=== PATIENT | male | born 1955 | race Caucasian/White ===

== ENCOUNTER 2017-10-27 07:00 | Outpatient (RCR) | payer OTHER, SELFPAY ==
--- NOTE | 2017-10-06 11:17 | HP.PTEVAL_ITS ---
Patient's Visit Information RICKIE GOOD is a 61 year old M referred to Physical Therapy by Rickie WOOD with a diagnosis of Plantar Fascitits. Date of Evaluation: 10/06/17 Physical Therapist: Patience Grant - Visit Plan Frequency: 2x /Week Duration: 4 Weeks Plan: Stretching and modality of US with manual therapy. - Subjective Subjective: Left foot is worse than the right- months- This is not the first time- but he can't get rid of it this time. Has had over the counter insoles- is currently wearing the store bought onese. They make it better- just not all the way gone. When he gets up in the AM and whe he gets home from working and sits for awhile. Does not wear night splints. Was recommended but does not have them. Once he is moving the pain gets better. Pain is in the heel on the bottom of the foot. No radiating pain. Worst: 6/10 Best: 0/10. Describes the pain as sharp. When he puts his shoes on 30 min later he is happy. No N/T in the toes. 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 Not sore with the shoes on. Has been wearing shoes in the house. Was almost gone but went to the beach in August- he was in flip flops. Has had foot surgery on the left- toes rubbing. Pretty active. PMHx: carpal tunnel, RTC 10 years ago left side. Meds: none. - Objective Posture: FH, RS. Gait: no deviation noted. SLS: increased pronation bilateral. HR/TR: able. ROM: DF: 5 degrees, PF: 30 degrees, Inv/Ever: WFL. Strength: 5/5. Flex: HS: moderate, Gastroc: severe, Soleus: moderate - Goals Goal 1:: Patient will be I with HEP and progression Goal Time Frame: 4-6 Weeks Goal 2:: Patient will SLS for 30 sec without LOB or increased pronation Goal Time Frame: 4-6 Weeks Goal 3:: Patient will demo 10 degrees of ROM in DF to ease ADL's and demo increased gastroc flexibility. Goal Time Frame: 4-6 Weeks - Rehabilitation Potential Physical Therapy Diagnosis: Patient presents with hypomobility- he has decreased ROM and flexibility leading to increased pain Rehabilitation Potential: Fair - Anticipated Interventions Patient/Client Instruction: Educate patient on: Benefits of Fitness Program For the Purpose of:: To increase tolerance to activity/condition/position Therapeutic Exercise to Include: Strength training, Endurance training, Balance training, Agility training, Body mechanics, Flexibilty training, Passive ROM, Active ROM For the Purpose of:: To improve muscle performance and motor function Manual Therapy Techniques to Include: Mobilization, Soft tissue mobilization For the Purpose of:: To improve nutrient delivery to tissue Cryotherapy (ice pack, ice massage): Yes Thermo therapy (hot pack): Yes Ultrasound (thermal/non thermal): Yes For the Purpose of:: To decrease pain Thank you for the opportunity to evaluate your patient. For Medicare and Medicare HMO plans, please review the plan of care and approve it. It will need to be FAXED BACK to us at [phone] for Medicare purposes. Please let me know if there are questions or concerns regarding this plan of care. Physician Signature: Date:
--- NOTE | 2017-10-27 07:23 | HP.PTDCSUM_ITS ---
HP - PT D/C Summary It has been my pleasure to treat RICKIE GOOD under orders from Rickie Jason, for the diagnosis of Plantar Fascitits for a total of 6 visit (s). Discharge Date: Please see the following information for a summary of their discharge status. - Subjective Subjective: Still has the little bit of pain at the end of the day. Was in boots but not his work boots and did have orthotics in them. Feels the spot in the back is getting better. Does have some pain the AM but its better. Left is the only one that bothers him. - Overall Improvement % Improvement: 80 - Objective Objective/Function: Posture: good throughout. Gait: no deviation noted. Palpation: not tender. Strength: 5/5 throughout. ROM: DF: 5 degrees, PF: 60 degrees, Ever: 30 degrees, Inv: 40 degrees. Flex: HS: mod, Gastroc: mod, Solues : mod - Goals Goal 1:: Patient will be I with HEP and progression Goal Progress: Goal Met Goal 2:: Patient will SLS for 30 sec without LOB or increased pronation Goal Progress: Goal Met Goal 3:: Patient will demo 10 degrees of ROM in DF to ease ADL's and demo increased gastroc flexibility. Goal Progress: Progressing - Plan Plan: Discharge to HEP - D/C Information If there are questions or concerns regarding this patient's physical therapy, please feel free to call me at [phone]. Thank you for the referral of this patient. Sincerely, Patience Grant
== END 2017-10-27 19:00 | disposition home or self-care (01) ==
LOC: PT 07:00
PROVIDERS: Family Provider Family Medicine; PCP Family Medicine; Visit Provider Podiatrist
DX: M72.2 Plantar fascial fibromatosis (principal)
CPT/HCPCS: 97035; 97110; 97140; 97161; 97530

== ENCOUNTER → 2018-02-18 11:26 | Outpatient (CLI) | payer OTHER, SELFPAY ==
[2018-02-18 14:10] LABS: Hematocrit 39.4 % (40-54); Hemoglobin 12.9 g/dl (13.0-16.5); Mean Corp Hgb Conc 32.7 g/gl (32-36); Mean Corpuscular Hgb 30.3 pg (27.0-32.0); Mean Corpuscular Volume 92.5 fL (80-94); Platelet Count 239 K/mm3 (150-450); RBC Distribution Width SD 47.1 fl (35.1-43.9); Red Blood Count 4.26 M/mm3 (4.6-6.2); Scan Indicated on CBC? Y/N NO; White Blood Count 5.8 K/mm3 (4.4-11.0)
[2018-02-18 14:31] LABS: ALB/GLOB Ratio 1.2 RATIO (0.9-2.4); AST(SGOT) 20 U/L (15-37); Alanine Aminotransfer ALT/SGPT 31 U/L (16-61); Albumin, Serum 3.8 g/dL (3.2-5.0); Alkaline Phosphatase 53 U/L (45-117); Anion Gap 7 (5-15); BUN 23 mg/dL (7-18); BUN/Creat Ratio 22.5 RATIO (10-20); Chloride 105 mmol/L (98-107); Cholesterol 185 mg/dL (200); Creatinine, Serum 1.02 mg/dL (0.70-1.30); EST Glomerular Filtration Rate 78 mL/min (>60); Est Glom Filt Rate - Afr Amer 95 mL/min (>60); Globulin 3.3 g/dL (2.2-4.2); Glucose 82 mg/dL (74-106); High Density Lipoprotein 45 mg/dL; PSA,Total - Annual Screen 2.35 ng/mL (0.00-4.00); Potassium 4.6 mmol/L (3.5-5.1); Protein, Total 7.1 g/dL (6.4-8.2); Sodium Level 140 mmol/L (136-145); Thyroid Stim Hormone (TSH) 0.77 uIU/mL (0.358-3.74); Triglycerides 124 mg/dL; Very Low Density Lipoprotein 25 mg/dL (5-40)
== END ==
PROVIDERS: Family Provider Family Medicine; PCP Family Medicine; Visit Provider Family Medicine
DX: I10 Essential (primary) hypertension (principal); R97.20 Elevated prostate specific antigen [PSA]; Z12.5 Encounter for screening for malignant neoplasm of prostate
CPT/HCPCS: 36415; 80053; 80061; 84153; 84443; 85027; G0103

== ENCOUNTER → 2019-05-26 | Outpatient (CLI) | payer MEDICARE, SELFPAY ==
[2019-05-26 12:56] LABS: ALB/GLOB Ratio 1.1 RATIO (0.9-2.4); AST(SGOT) 17 U/L (15-37); Alanine Aminotransfer ALT/SGPT 26 U/L (16-61); Albumin, Serum 3.7 g/dL (3.2-5.0); Alkaline Phosphatase 56 U/L (45-117); Anion Gap 5 (5-15); BUN 23 mg/dL (7-18); BUN/Creat Ratio 21.9 RATIO (10-20); Calcium,Total 8.6 mg/dL (8.5-10.1); Chloride 108 mmol/L (98-107); Cholesterol 223 mg/dL (200); Creatinine, Serum 1.05 mg/dL (0.70-1.30); EST Glomerular Filtration Rate 75 mL/min (>60); Est Glom Filt Rate - Afr Amer 91 mL/min (>60); Globulin 3.3 g/dL (2.2-4.2); Glucose 87 mg/dL (74-106); High Density Lipoprotein 51 mg/dL; PSA,Total - Annual Screen 1.91 ng/mL (0.00-4.00); Potassium 4.6 mmol/L (3.5-5.1); Sodium Level 140 mmol/L (136-145); Triglycerides 104 mg/dL; Very Low Density Lipoprotein 21 mg/dL (5-40)
== END | disposition home or self-care (01) ==
PROVIDERS: Family Provider Family Medicine; PCP Family Medicine; Referring Provider Family Medicine; Visit Provider Family Medicine
DX: Z00.00 Encounter for general adult medical examination without abnormal findings (principal); R97.20 Elevated prostate specific antigen [PSA]; Z12.5 Encounter for screening for malignant neoplasm of prostate
CPT/HCPCS: 36415; 80053; 80061; 84153; G0103

== ENCOUNTER 2019-06-11 05:50 | Day surgery (SDC) | payer MEDICARE, SELFPAY ==
[2019-06-11] VITALS (23 sets, daily range): BP systolic 69–134; BP diastolic 39–92; PULSE 38–60; RESP 16; TEMP 36.1–36.8; O2SAT 93–100; BMI 26.8
[2019-06-11] MEDS: Lactated Ringers 1,000 ML 100 ML IV (06:22)
--- NOTE | 2019-06-11 06:31 | HP.PCM_ITS ---
Problem List (1) Screening for intestinal cancer Status: Acute History of Present Illness Date of Admission: 06/11/19 The patient is a 63 year old M who presents for screening colonoscopy today. Claims 10 years ago he had its previous one. Only upon contact by my office financial representative was he instructed that at that point he had a polyp. He does not recall those instructions. He has no current complaints. No abdominal pain. No bright red blood per rectum or melena. He otherwise enjoys good health. He does take medication for hypertension. Past Medical History Allergies No Known Allergies Allergy (Verified 06/08/19 09:15) Home Medications: Ambulatory Orders Medication Instructions Recorded Gluc Toney/Chondro Toney A/Vit C/Mn 1 ea PO DAILY 06/08/19 [Glucosamine Chondroitin Tab] Lisinopril [Zestril] 20 mg PO DAILY 06/08/19 Pyridoxine HCl (Vitamin B6) 250 mg PO DAILY 06/08/19 [Vitamin B-6] Smoking Status: Former smoker Tobacco Use: Non-smoker Review of Systems Constitutional: Denies: Anorexia HEENT: Denies: Difficulty Swallowing Cardiovascular: Denies: Chest Pain Gastrointestinal: Denies: Abdominal Pain, Melena Endocrine: Denies: Change in Body Habitus VTE Information - Inpt Only VTE Present on Admission: No Patient Problems: Active and Suspected Problems Screening for intestinal cancer (Acute) - Physical Exam General: Alert, Oriented x3, Cooperative, No apparent distress HEENT: Atraumatic Oral: Moist Mucosa Neck: Supple Lungs: Clear to auscultation, Normal air movement Cardiovascular: Regular rate, Regular Rhythm Abdomen: Bowel Sounds Present, Soft, Non Tender Extremities: No Calf Tenderness Neurological: - - Normal cognition Psych/Mental Status: Normal Affect Vital Signs Temp Pulse Resp BP Pulse Ox 98.0 F 58 L 16 121/62 H 100 06/11/19 06:17 06/11/19 06:17 06/11/19 06:17 06/11/19 06:17 06/11/19 06:17 Oxygen Delivery Method Room Air Weight: 197 lb 8.547 oz Body Mass Index (BMI) 26.8 Assessment/Plan All Active Problems Screening for intestinal cancer (Acute) I recommended the patient is screening colonoscopy with possible biopsy or polypectomy is indicated. He is aware of the technique, benefits, risks, alternatives. He has had an opportunity to ask and have questions answered. He presents via our open access program today. We will proceed as noted. Daniel Norris M.D., F.A.C.S.
--- NOTE | 2019-06-11 07:00 | COLBX_PTH ---
PATIENT: RICKIE GOOD LOC: [facility] U#:[id number] AGE/SX: 63/M ROOM: RE06/11/[address]: Dr. Daniel Norris MD : 1955 BED: DIS: 06/11/2019 SPEC #: [id number] RECD: 06/11/19 09:08 STATUS: TAN LUZ #: [id number] TRISTON: 06/11/19 07:[address]: Daniel Norris DEPT: SURGICAL PATHOLOGY RECD BY: Santos Russell ENTERED: 06/11/19 10:28 SP TYPE: COLON BX OTHR DR: Dr. Ector De La Vega MD Tissues: Sigmoid colon biopsy Procedures: Surgery Specimen Level IV HEADER OPERATION: Colonoscopy - open access (MOD) PRE-OP DIAGNOSIS: Screening TISSUE SUBMITTED: Proximal sigmoid polyp biopsy MICROSCOPIC DIAGNOSIS Proximal sigmoid polyp, biopsy: Fragments of colonic mucosa with focal minimal hyperplastic changes. SJ:samaria 10/14/19 MICROSCOPIC DESCRIPTION Slides are reviewed. GROSS DESCRIPTION Received in fixative is one container labeled with the patient's name and designated proximal sigmoid colon polyp. The specimen consists of multiple irregular fragments of light fernch soft tissue that in aggregate measure 1 x 0.3 x 0.1 cm. The specimen is totally submitted in one cassette. / AM:samaria 06/11/19 TC:5 CPT: 49943
--- NOTE | 2019-06-11 07:40 | OP.ENDO_ITS ---
06/11/2019 Anastacio De La Vega [address] [place] [address] Re : Colonoscopy procedure for Dannie Jama Dear Dr. De La Vega This procedure was performed on Tuesday, June 11, 2019. My impressions and recommendations are as follows: Impressions : - Enlarged prostate found on digital rectal exam. - Two 5 mm polyps in the proximal sigmoid colon, removed with a cold biopsy forceps. Resected and retrieved. - Diverticulosis in the sigmoid colon and in the descending colon. - The examination was otherwise normal. Recommendations : - Discharge patient to home. - Resume previous diet. - Continue present medications. - Repeat colonoscopy in 5 years for surveillance based on pathology results. - Telephone my office for pathology results in 1 week. My findings are described in the full procedure note, which is enclosed. If I can be of further assistance, please feel free to contact me at Doctor phone number(s): Work: . Sincerely, Daniel Norris MD 06/11/2019 7:39:50 AM This report has been signed electronically.
--- NOTE | 2019-06-11 08:23 | EKG12_ITS ---
Test Reason : Blood Pressure : / mmHG Vent. Rate : 046 BPM Atrial Rate : 046 BPM P-R Int : 182 ms QRS Dur : 110 ms QT Int : 444 ms P-R-T Axes : 033 -32 022 degrees QTc Int : 388 ms Sinus bradycardia Left axis deviation Abnormal ECG When compared with ECG of 03-DEC-2013 06:30, No significant change was found Confirmed by ALBERT VILLA, DORIS ([id number]), newspaper editor CHRISTIANO PALUMBO ([id number]) on 06/16/2019 11:30:51 AM Referred By: Daniel Norris Confirmed By:DORIS PRICE MD
[2019-06-11] MEDS: Lactated Ringers 1,000 ML 999 ML IV ×2 (08:25→09:20)
--- NOTE | 2019-06-11 09:43 | PCM.PN.BLA ---
Progress Note 63-year-old gentleman. His IV removed and he was being discharged when he became syncopal ashen and bradycardic. He was immediately taken back to the recovery area. He was noted to be bradycardic down to heart rate of approximately 35. He was still responsive ashened hypotensive. He was placed in Trendelenburg position. An IV was reinserted. He was given 0.25 mg of atropine. He was given a liter bolus of saline. Twelve-lead EKG was obtained did not demonstrate acute abnormality. Troponins were ordered. Dr. Senthil Sutton anesthesiology assisted with patient evaluation. Final interpretation was suspected vasovagal episode. The patient was observed for an extensive period of time. Pending his further progress he had a will be discharged with a diagnosis of vasovagal or if laboratory is remarkable then a hospitalist consult will be obtained. Daniel Norris M.D., F.A.C.S.
== END 2019-06-11 11:08 | disposition home or self-care (01) ==
LOC: EN 05:54 → AC 05:54
PROVIDERS: Anesthesiology; Family Provider Family Medicine; PCP Family Medicine; Referring Provider Surgery; Visit Provider Surgery
PROC: 0DJD8ZZ Inspection of Lower Intestinal Tract, Via Natural or Artificial Opening Endoscopic (ICD-10-PCS; CPT 45378; principal; 2019-06-11 06:55)
DX: Z12.11 Encounter for screening for malignant neoplasm of colon (principal); K63.5 Polyp of colon; R55 Syncope and collapse; K57.30 Diverticulosis of large intestine without perforation or abscess without bleeding; N40.0 Benign prostatic hyperplasia without lower urinary tract symptoms; I10 Essential (primary) hypertension; Z79.899 Other long term (current) drug therapy; Z87.891 Personal history of nicotine dependence
CPT/HCPCS: 45380; 96360; 96361; 36415; 84484; 88305; 93005; 99152; 99153; J7120

== ENCOUNTER 2020-04-16 10:53 | Emergency (ER) | payer MEDICARE, SELFPAY ==
[2019-06-11 06:17] VITALS: BMI 26.8
[2020-04-16 10:54] VITALS: BP 145/77; PULSE 55; RESP 17; TEMP 36.5; O2SAT 98; BMI 28.0
--- NOTE | 2020-04-16 11:14 | EKG12_ITS ---
Test Reason : CP Blood Pressure : / mmHG Vent. Rate : 050 BPM Atrial Rate : 050 BPM P-R Int : 166 ms QRS Dur : 106 ms QT Int : 404 ms P-R-T Axes : 002 -31 014 degrees QTc Int : 368 ms Sinus bradycardia Left axis deviation Abnormal ECG Confirmed by MARYELLEN VILLA, ARY ([id number]), medical transcription editor JÚNIOR BEJARANO ([id number]) on 04/17/2020 2:43:29 PM Referred By: UG/CG Confirmed By:ARY BOJORQUEZ MD
--- NOTE | 2020-04-16 11:34 | ED.VIS.GEN ---
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 Lightheadedness is worse if he rises from a supine or standing position quickly. Context: Sudden Onset Timing: Intermittent - Pain lasted for 1 minute and was described as sharp with no associated symptoms the lightheadedness is intermittent. Quality: Sharp chest pain and orthostatic Location: symptoms left anterior chest Current Severity: - - Pain is resolved. Orthostatic symptoms/dizziness has resolved. Patient is supine. Maximum Severity: Moderate - Previously described Worsened by: Upright position Relieved by: Nothing Associated Symptoms: Nothing Narrative: Patient is a 64-year-old male who presents with orthostatic symptoms last 3 days. Denies black or maroon stool. Denies fever, chills night sweats. Eyes ocular, visual auditory symptoms. Nuys change in voice. He denies difficulty swallowing or breathing. He presently denies chest pain. He denies respiratory symptoms. He denies GI symptoms. He denied radiation of the discomfort. He denies black or maroon stool. He denies history of PE or DVT. 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 The pain lasted for 1 minute. His only risk factor for coronary disease is hypertension. He smokes. There is a debate how much. He states half pack per day says 2 packs/day. He states he smoked for 45 years. Prior similar symptoms: No Recent Illness/Hospitalization: No - Past Medical History (1) History of hypertension Status: Acute (2) Screening for intestinal cancer Status: Acute Past Medical History - Allergies and Home Meds Allergies/Adverse Reactions: Allergies No Known Allergies Allergy (Verified 04/16/20 10:53) Primary Care Physician: Anastacio De La Vega MD [Primary Care Provider] - Prior records reviewed: Yes Surgical History: no surgical history Lives: Spouse/ Significant Other Smoking Status: Former smoker Alcohol: Rare Drugs: None Review of Systems General: Denies: Chills, Fever, Malaise, Subjective, Sweats Eyes: Denies: Visual changes - bilaterally, Blurred Vision - bilaterally, Diplopia ENT: Denies: Bilateral ear pain, Rhinorrhea, Sore throat Cardiovascular: Reports: Chest pain. Denies: Palpitations Respiratory: Denies: Dyspnea, Sputum, Dyspnea on exertion, Orthopnea, Paroxysmal nocturnal dyspnea Gastrointestinal: Denies: Abdominal pain, Nausea, Vomiting, Diarrhea, Melena, Hematochezia Musculoskeletal: Denies: Myalgias, Arthralgias, Swelling, Extremity Pain Skin: Denies: Rash, Wounds Neurological: Reports: Weakness. Denies: Headache, Parasthesia Endocrine: Denies: Polyuria, Polydipsia Hematologic: Denies: Easy bruising Physical Exam Vital Signs/Narrative: Vital Signs Temp Pulse Resp BP Pulse Ox 04/16/20 10:54 97.7 F L 55 L 17 145/77 H 98 Inital Vital Signs reviewed: Yes General: Well nourished, Well developed, No Acute Distress Head: Normocephalic, Atraumatic Eyes: Perrl, EOMI ENT: Moist mucous membranes, No rhinorrhea Neck: Supple, Nontender Cardiovascular: Regular rate, Regular rhythm, No murmurs Respiratory: No distress, CTA bilaterally, Chest nontender Abdomen: Soft, Nontender, Nondistended, Normal bowel sounds Rectal: - - There is no asymmetry, swelling, discoloration, leg vein distention, palpable cords or tenderness along the distribution of the deep venous system. Patient does have hair on his toes. D.P. PT pulse are palpable. Back: Nontender, Normal Inspection Extremities: Nontender, No edema Skin: Normal color, No rash Neurological: Alert, Oriented x3, Cranial nerves II-XII grossly intact, Normal Strength, Normal Sensation Psychological: Normal affect, Normal Mood Diagnostic/Tx/Re-eval Laboratory Results 04/16/20 04/16/20 11:36 11:36 WBC 4.3 L RBC 4.18 L Hgb 12.9 L Hct 38.8 L MCV 92.8 MCH 30.9 MCHC 33.2 RDW Std Deviation 44.9 H RDW Coeff of Jorge 13.2 Plt Count 253 MPV 9.7 Immature Gran % (Auto) 0.500 Neut % (Auto) 59.2 Lymph % (Auto) 28.6 Sierra % (Auto) 9.8 Eos % (Auto) 1.4 Baso % (Auto) 0.5 Absolute Neuts (auto) 2.6 Absolute Lymphs (auto) 1.23 Nucleated RBC % 0 Sodium 141 Potassium 4.4 Chloride 108 H Carbon Dioxide 27.0 Anion Gap 6 BUN 20 H Creatinine 1.12 Estim Creat Clear Calc 71.21 Est GFR (MDRD) Af Amer 84 Est GFR (MDRD) Non-Af 70 BUN/Creatinine Ratio 17.9 Glucose 100 Calcium 8.7 The static vital signs were performed after IV fluid. Orthostatic vitals were normal. Patient's unable to reproduce the symptoms that prompted him to come to the emergency department. Therefore, will discharge to home with appropriate home-going instructions. - EKG Initial EKG Interpretation: Sinus Rhythm - Sinus rhythm with a ventricular rate of 50. NE interval 166 ms. QRS duration 106 ms. QT duration 4 and 4 ms with a QTC of 368 ms. Bellamy to left. The EKG is remarkable sinus bradycardia and left axis. There is no ischemic changes noted. - Medical Decision Making Patient's chest pain is atypical. This does not represent cardiac pain. Clinically patient is dehydrated. Will obtain blood work to assess renal function since he has his hypertension to rule out elevated creatinine/acute renal insufficiency. He also received 1 L of normal saline wide open. ED Disposition - Plan for ED Patient: Disposition: Home or Assisted Living Diagnosis: Left-sided chest pain, Lightheadedness, Mild dehydration Instructions: ED Dehydration Adult, ED Hypotension Orthostatic Referrals: Anastacio De La Vega MD [Primary Care Provider] - As Needed
[2020-04-16] MEDS: 0.9% Normal Saline 1,000 ML 1000 ML IV (11:39)
[2020-04-16 11:44] LABS: Absolute Lymphocyte Count 1.23 X10^3/uL (0.83-4.51); Absolute Neutrophil Count 2.6 X10^3/uL (2.0-7.7); Basophil# 0.02 X10^3/uL; Basophil% 0.5 % (0-1); Eosinophil# 0.06 X10^3/uL; Eosinophils% 1.4 % (0-5); Hematocrit 38.8 % (40-54); Hemoglobin 12.9 g/dL (13.0-16.5); Lymphocyte # 1.23 X10^3/ul (4.0); Lymphocyte % 28.6 % (19-41); Mean Corp Hgb Conc 33.2 g/dL (32-36); Mean Corpuscular Hgb 30.9 pg (27.0-32.0); Mean Corpuscular Volume 92.8 fL (80-94); Mean Platelet Vol. 9.7 fl (6.2-12.0); Monocyte# 0.42 X10^3/uL; Monocyte% 9.8 % (0-10); NRBC Flagged by Analyzer 0 % (0-5); Neutrophil # 2.55 X10^3/uL (2.7-7.7); Neutrophil % 59.2 % (47-70); Platelet Count 253 K/mm3 (150-450); RBC Distribution Width CV 13.2 % (11.6-14.6); RBC Distribution Width SD 44.9 fl (35.1-43.9); Red Blood Count 4.18 M/mm3 (4.6-6.2); White Blood Count 4.3 K/mm3 (4.4-11.0)
[2020-04-16 11:56] LABS: Anion Gap 6 (5-15); BUN 20 mg/dL (7-18); BUN/Creat Ratio 17.9 RATIO (10-20); Calcium,Total 8.7 mg/dL (8.5-10.1); Chloride 108 mmol/L (98-107); Creatinine, Serum 1.12 mg/dL (0.70-1.30); EST Glomerular Filtration Rate 70 mL/min (>60); Est Glom Filt Rate - Afr Amer 84 mL/min (>60); Estimated Creatinine Clearance 71.21 ml/min; Glucose 100 mg/dL (74-106); Potassium 4.4 mmol/L (3.5-5.1); Sodium Level 141 mmol/L (136-145)
[2020-04-16 12:13] VITALS: BP 125/72; BP 134/86; BP 138/83; PULSE 51; PULSE 64
[2020-04-16 12:31] VITALS: BP 132/75; PULSE 53; RESP 15; O2SAT 97
== END 2020-04-16 12:43 | disposition home or self-care (01) ==
PROVIDERS: Emergency Provider Emergency Medicine; PCP Family Medicine
DX: E86.0 Dehydration (principal); R07.89 Other chest pain; I10 Essential (primary) hypertension; F17.200 Nicotine dependence, unspecified, uncomplicated; Z79.899 Other long term (current) drug therapy
CPT/HCPCS: 80048; 85025; 93005; 96360; 99285; J7030; A4216

== ENCOUNTER → 2020-06-08 | Outpatient (CLI) | payer MEDICARE, SELFPAY ==
[2020-06-08 10:55] LABS: Anion Gap 5 (5-15); BUN 27 mg/dL (7-18); BUN/Creat Ratio 24.1 RATIO (10-20); Calcium,Total 8.6 mg/dL (8.5-10.1); Chloride 109 mmol/L (98-107); Cholesterol 215 mg/dL (200); Creatinine, Serum 1.12 mg/dL (0.70-1.30); EST Glomerular Filtration Rate 70 mL/min (>60); Est Glom Filt Rate - Afr Amer 84 mL/min (>60); Glucose 89 mg/dL (74-106); High Density Lipoprotein 47 mg/dL; PSA,Total - Annual Screen 3.06 ng/mL (0.00-4.00); Potassium 4.7 mmol/L (3.5-5.1); Sodium Level 141 mmol/L (136-145); Triglycerides 72 mg/dL; Very Low Density Lipoprotein 14 mg/dL (5-40)
== END | disposition home or self-care (01) ==
PROVIDERS: PCP Family Medicine; Referring Provider Family Medicine; Visit Provider Nurse Practitioner Family
DX: Z00.00 Encounter for general adult medical examination without abnormal findings (principal); Z12.5 Encounter for screening for malignant neoplasm of prostate
CPT/HCPCS: 36415; 80048; 80061; 84153; G0103

== ENCOUNTER → 2021-07-24 08:22 | Outpatient (CLI) | payer MEDICARE, SELFPAY ==
[2021-07-24 10:13] LABS: AST(SGOT) 19 U/L (15-37); Alanine Aminotransfer ALT/SGPT 32 U/L (16-61); Albumin, Serum 3.7 g/dL (3.2-5.0); Alkaline Phosphatase 61 U/L (45-117); Anion Gap 5 (5-15); BUN 23 mg/dL (7-18); BUN/Creat Ratio 21.3 RATIO (10-20); Calcium,Total 8.7 mg/dL (8.5-10.1); Chloride 106 mmol/L (98-107); Cholesterol 159 mg/dL (200); Creatinine, Serum 1.08 mg/dL (0.70-1.30); EST Glomerular Filtration Rate 72 mL/min (>60); Est Glom Filt Rate - Afr Amer 88 mL/min (>60); Globulin 3.7 g/dL (2.2-4.2); Glucose 88 mg/dL (74-106); High Density Lipoprotein 45 mg/dL; PSA,Total - Annual Screen 2.59 ng/mL (0.00-4.00); Potassium 4.2 mmol/L (3.5-5.1); Protein, Total 7.4 g/dL (6.4-8.2); Sodium Level 140 mmol/L (136-145); Triglycerides 102 mg/dL; Very Low Density Lipoprotein 20 mg/dL (5-40)
== END ==
LOC: MFPLAB 08:25
PROVIDERS: PCP Family Medicine; Referring Provider Family Medicine; Visit Provider Family Medicine
DX: E78.5 Hyperlipidemia, unspecified (principal); R97.20 Elevated prostate specific antigen [PSA]; Z12.5 Encounter for screening for malignant neoplasm of prostate
CPT/HCPCS: 36415; 80053; 80061; 84153; G0103

== ENCOUNTER → 2022-09-30 | Outpatient (CLI) | payer MEDICARE, SELFPAY ==
[2022-09-30 10:44] LABS: Anion Gap 7 (5-15); BUN 25 mg/dL (7-18); BUN/Creat Ratio 20.5 RATIO (10-20); Calcium,Total 9.1 mg/dL (8.5-10.1); Chloride 106 mmol/L (98-107); Cholesterol 165 mg/dL (200); Creatinine, Serum 1.22 mg/dL (0.70-1.30); EST Glomerular Filtration Rate 63 mL/min (>60); Est Glom Filt Rate - Afr Amer 76 mL/min (>60); Glucose 98 mg/dL (74-106); High Density Lipoprotein 47 mg/dL; PSA,Total - Annual Screen 3.08 ng/mL (0.00-4.00); Potassium 4.5 mmol/L (3.5-5.1); Sodium Level 140 mmol/L (136-145); Triglycerides 163 mg/dL; Very Low Density Lipoprotein 33 mg/dL (5-40)
== END | disposition home or self-care (01) ==
LOC: MFPLAB 08:37
PROVIDERS: PCP Family Medicine; Visit Provider Family Medicine
DX: I10 Essential (primary) hypertension (principal); E78.5 Hyperlipidemia, unspecified; R97.20 Elevated prostate specific antigen [PSA]; Z12.5 Encounter for screening for malignant neoplasm of prostate
CPT/HCPCS: 36415; 80048; 80061; 84153; G0103

== ENCOUNTER → 2024-04-27 | Outpatient (CLI) | payer MEDICARE, SELFPAY ==
[2024-04-27 13:23] LABS: ALB/GLOB Ratio 1.1 RATIO (0.9-2.4); AST(SGOT) 20 U/L (15-37); Alanine Aminotransfer ALT/SGPT 30 U/L (16-61); Albumin, Serum 3.6 g/dL (3.2-5.0); Alkaline Phosphatase 69 U/L (45-117); Anion Gap 5 (5-15); BUN 27 mg/dL (7-18); Calcium,Total 9.2 mg/dL (8.5-10.1); Chloride 106 mmol/L (98-107); Cholesterol 145 mg/dL (200); Creatinine, Serum 1.04 mg/dL (0.70-1.30); EST Glomerular Filtration Rate 75 mL/min (>60); Est Glom Filt Rate - Afr Amer 91 mL/min (>60); Globulin 3.4 g/dL (2.2-4.2); Glucose 96 mg/dL (74-106); High Density Lipoprotein 43 mg/dL; PSA,Total - Annual Screen 2.86 ng/mL (0.00-4.00); Potassium 4.4 mmol/L (3.5-5.1); Sodium Level 140 mmol/L (136-145); Triglycerides 81 mg/dL; Very Low Density Lipoprotein 16 mg/dL (5-40)
== END | disposition home or self-care (01) ==
LOC: MTLAB 08:52
PROVIDERS: PCP Family Medicine; Referring Provider Family Medicine; Visit Provider Family Medicine
DX: E78.5 Hyperlipidemia, unspecified (principal); N40.0 Benign prostatic hyperplasia without lower urinary tract symptoms
CPT/HCPCS: 36415; 80053; 80061; 84153; G0103

== ENCOUNTER 2024-07-27 08:34 | Day surgery (SDC) | payer MEDICARE, SELFPAY ==
[2024-07-27] VITALS (7 sets, daily range): BP systolic 111–160; BP diastolic 59–91; PULSE 63–73; RESP 16; TEMP 36.2–36.3; O2SAT 95–97; BMI 27.5
--- NOTE | 2024-07-27 09:30 | PRE.ANES_ITS ---
ASA Classification* ASA Classification ASA Classification: 2 Assessment & Plan Anesthesia* Anesthesia Assessment Anesthesia Assessment: Discussed sedation and/or anesthesia options, risks, benefits, and alternatives with patient/parents/legal guardian/POA. Questions invited. The patient/parents/legal guardian/POA seems to understand and agrees to proceed with anesthesia plan. Reviewed the physical assessment, medical history, allergy history and patient home medications list prior to surgery/procedure/anesthetic and documented any changes. Performed airway and anesthesia risk assessments. Anesthesia Type Anesthesia Type: MAC (Hx of vagal episode after previuos colonscopy years ago) Anesthesia Focused Assessment* Temperature: 97.2 F Pulse Rate: 63 Blood Pressure: 160/91 Respiratory Rate: 16 Pulse Ox: 97 Airway Assessment Mouth opens: >3 cm Mallampati Score: II Focused Labs Anesthesia Preop lab: CBC WBC 4.3 K/mm3 (4.4-11.0) L 04/16/20 11:36 RBC 4.18 M/mm3 (4.6-6.2) L 04/16/20 11:36 Hgb 12.9 g/dL (13.0-16.5) L 04/16/20 11:36 Hct 38.8 % (40-54) L 04/16/20 11:36 Plt Count 253 K/mm3 (150-450) 04/16/20 11:36 CHEMISTRY Potassium 4.4 mmol/L (3.5-5.1) 04/27/24 08:54 Sodium 140 mmol/L (136-145) 04/27/24 08:54 BUN 27 mg/dL (7-18) H 04/27/24 08:54 Creatinine 1.04 mg/dL (0.70-1.30) 04/27/24 08:54 Glucose 96 mg/dL (74-106) 04/27/24 08:54 TSH 0.77 uIU/mL (0.358-3.74) 02/18/18 11:27 COAG Pre-Assessment Diagnosis/Proposed Procedure Planned Operative Procedure(s): CSCOPE OA Anesthesia History 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 When Was Last Pacemaker Check QUESTION #4 FULL TEXT: You/Your Family Experience fever (hyperthermia) with Anesthesia Last Oral Intake Last Oral intake: Last Oral Intake NPO since 05:30 07/27/24 09:20 Meds taken in AM with sips of water? Meds patient instructed to take am of surgery PONV PONV - inserting machine operator: PONV - inserting machine operator Female No 07/23/24 15:11 HX of Motion Sickness No 07/23/24 15:11 HX of N/V After Surgery No 07/23/24 15:11 Non-Smoker Yes 07/23/24 15:11 Duration of Surgery greater No 07/23/24 15:11 than 60 minutes Number of Risk Factors 1 07/23/24 15:11 PONV Score Low Risk 07/23/24 15:11 Height & Weight Height & Weight: Anesthesia: Height & Weight Height 5 ft 11 in 07/27/24 09:20 Weight: 89.6 kg 07/27/24 09:20 Body Mass Index (BMI) 27.5 07/27/24 09:20 Respiratory Assessment Respiratory Assessment - inserting machine operator: Respiratory Tract Infection Hx - inserting machine operator Hx Respiratory Tract Infection No 07/23/24 15:11 STOP Sleep Apnea STOP Sleep Apnea - inserting machine operator: STOP Sleep Apnea - inserting machine operator Hx Hypertension Yes: NO MEDS FOR 4 WEEKS 07/23/24 15:11 Hx Sleep Apnea No 07/23/24 15:11 CPAP No 06/11/19 07:40 BIPAP Do you snore loudly (louder Yes 07/23/24 15:11 than talking or can be heard Do you often feel tired/ No 07/23/24 15:11 fatigued/ sleepy during daytime? Has anyone observed you stop No 07/23/24 15:11 breathing during sleep? STOP Results Positive 07/23/24 15:11 QUESTION #5 FULL TEXT : Do you snore loudly (louder than talking or can be heard through closed doors)? 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 Specify any problems Hx of Preganancy in last 3 N/A 07/23/24 15:11 Months Nurse Filling Out Transfusion DSCHRIBER 07/23/24 15:11 & Questions: Date: 07/23/24 07/23/24 15:11 Time: 15:13 07/23/24 15:11 Patient unable to answer at this time (ie. confused, unrespo /Reproduction History /Reproductive History - inserting machine operator: /Reproductive Hx- inserting machine operator Hx Now No 07/23/24 15:11 Gestational Age (in weeks): EDC: Hx Hx Para Hx Section SAB No 07/23/24 15:11 PFSH Medical History Wears hearing aid Wears glasses Wears dentures Cancer Anxiety Alcohol use Easy bruising Back pain History of diverticulitis Former smoker Leg cramps History of edema Hypertension Hyperlipidemia Personal history of colonic polyps Home Medications ?Medication ?Instructions ?Recorded ?Last Taken ?Type atorvastatin 10 mg tablet 10 mg PO QHS 06/21/24 Unknown History multivitamin 1 tab PO QDAY 06/21/24 Unknown History omega-3 fatty acids-fish oil 360 1 cap PO QDAY 06/21/24 07/02/24 History mg-1,200 mg capsule (Fish Oil) glucosamine-chondroitin 500 mg-400 1 tab PO DAILY 07/23/24 Unknown History mg tablet Allergy/AdvReac Type Severity Reaction Status Date / Time No Known Allergies Allergy Verified 07/27/24 09:03 Surgical History History of esophagogastroduodenoscopy (EGD) Hx of toe surgery Hx of repair of left rotator cuff Hx of colonoscopy Social History household members: spouse current occupational status: retired Smoking Status: Former smoker Tobacco: How many years used: 40 alcohol intake: current alcohol intake frequency: a few times a week Alcohol type: beer substance use type: does not use Review of Systems (Anesthesia) ROS Narrative System reviewed and no additional complaints, except as documented.
[2024-07-27] MEDS: Lactated Ringers 1,000 ML 15 ML IV (09:38)
--- NOTE | 2024-07-27 09:45 | COLBX_PTH ---
PATIENT: RICKIE GOOD LOC: [facility] U#:[id number] AGE/SX: 68/M ROOM: RE07/27/[address]: Dr. Hossein Mixon MD : 1955 BED: DIS: 07/27/2024 SPEC #: [id number] RECD: 07/27/24 12:21 STATUS: TAN ESCOBAR #: [id number] TRISTON: 07/27/24 09:[address]: Hossein Mixon DEPT: SURGICAL PATHOLOGY RECD BY: Vianney Blackman ENTERED: 07/27/24 13:22 SP TYPE: COLON BX OTHR DR: Dr. Ector De La Vega MD Tissues: Rectum, NOS Procedures: Surgery Specimen Level IV HEADER OPERATION: Colonoscopy with polypectomy PRE-OP DIAGNOSIS: Encounter for screening for malignant neoplasm of colon TISSUE SUBMITTED: Rectal polyp MICROSCOPIC DIAGNOSIS Rectal polyp, biopsy: Tubular adenoma. AM.mr 07/28/2024 MICROSCOPIC DESCRIPTION Slides are reviewed. GROSS DESCRIPTION Received in fixative is one container labeled with the patient's name and designated Rectal polyp. The specimen consists of one irregular fragment of light french soft tissue that measures 0.5 x 0.4 x 0.1 cm. The specimen is totally submitted in one cassette. 07/27/2024 TC:5 CPT:65421
--- NOTE | 2024-07-27 09:54 | H&P.OPEN ---
HPI - General HPI Narrative RICKIE GOOD, is a 68 M who presents for screening colonoscopy. His last colonoscopy was 5 years ago and 2 small polyps were removed. He denies any abdominal pain or blood in the stool. [facility] Medical History Wears hearing aid Wears glasses Wears dentures Cancer Anxiety Alcohol use Easy bruising Back pain History of diverticulitis Former smoker Leg cramps History of edema Hypertension Hyperlipidemia Personal history of colonic polyps Home Medications ?Medication ?Instructions ?Recorded ?Last Taken ?Type atorvastatin 10 mg tablet 10 mg PO QHS 06/21/24 Unknown History multivitamin 1 tab PO QDAY 06/21/24 Unknown History omega-3 fatty acids-fish oil 360 1 cap PO QDAY 06/21/24 07/02/24 History mg-1,200 mg capsule (Fish Oil) glucosamine-chondroitin 500 mg-400 1 tab PO DAILY 07/23/24 Unknown History mg tablet Allergy/AdvReac Type Severity Reaction Status Date / Time No Known Allergies Allergy Verified 07/27/24 09:03 Surgical History History of esophagogastroduodenoscopy (EGD) Hx of toe surgery Hx of repair of left rotator cuff Hx of colonoscopy Social History household members: spouse current occupational status: retired Smoking Status: Former smoker Tobacco: How many years used: 40 alcohol intake: current alcohol intake frequency: a few times a week Alcohol type: beer substance use type: does not use Past Medical/Surgical History Planned Operation Planned Operative Procedure(s): CSCOPE OA S.O.S: No Previous Hospitalizations/Surgeries HX Hospitalizations: No HX of Surgeries: left rtc repair cscope Any Problems With Anesthesia: Yes (HYPOTENSION) You/Your Family Experience Fever (Hyperthermia) With Anes: No Cholinesterase deficiency: No Cardiovascular Hx Chest Pain within Last 2 months: No Hx of Irregular Heartbeat and/or Afib: No Hx Heart Attack: No Hx Congestive Heart Failure: No Hx Rheumatic Fever: No Hx Hypertension: Yes (NO MEDS FOR 4 WEEKS) Hx Pacemaker: No Hx Cardiac Catheterization: No Hx Cardiac Surgery/Stents/Etc.: No Hx Stress Test: No Hx Pain in Legs when Walking/Leg Cramps: No Respiratory Chronic Cough: No HX of Shortness of Breath: No Hoarseness: No Hx Chronic Obstructive Pulmonary Disease (COPD): No Hx Asthma: No Hx Emphysema: No Hx Sleep Apnea: No CPAP: No Hx Respiratory Tract Infection/Cold (presently): No Do You Snore Loudly (louder than talking or can be heard): Yes Do You Often Feel Tired/ Fatigued/ Sleepy Dring Daytime?: No Has Anyone Observed You Stop Breathing During Sleep?: No Result (for STOP score): Positive Hx Smoking: Yes (quit 5 yrs ago) Smoking Status: Former smoker Gastrointestinal Hx Gastrointestinal Disorders: No Hx Gastrointestinal Bleed: No Hx Ulcer: No Hx Hiatal Hernia: No Difficulty Chewing/Swallowing: No Special diet followed at home: No Hx Unplanned Weight Loss of 20#: No HX Unplanned Weight Gain of 20#: No Neurological Hx Seizures: No HX Syncope/Blackout Spells/Unconsciousness: No Hx Transient Ischemic Attacks (TIA): No Hx Multiple Sclerosis: No Hx Parkinson's Disease: No Hx Head/Neck Injury: No Hx Headaches: No Hx Back Injury/Pain: Yes (occ back pain) Recent Onset of Speech Difficulty: No Restless Legs: No Does patient have nerve stimulator: No Blood Disorder Hx Leukemia: No Bleeding Tendencies: No Hx Deep Vein Thrombosis: No Hx High Cholesterol: No Blood Transmitted Disease: No Hx Hepatitis: No Hx Cirrhosis: No Hx Anemia: No Hx Blood Disorders: No Reproduction : No Genitourinary Hx Renal Disease: No Musculoskeletal Hx Arthritis: Yes Hx Rheumatoid Arthritis: No Hx Gout: No Recent Onset of an Orthopedic Problem: No Endocrine Hx Diabetes: No Thyroid Disease: No Hx Steroid Therapy: No Psycho/Social Hx Substance Use: No Hx Alcohol Use: Yes (occ) Hx Anxiety: No Hx Depression: No Mental Illness: No Hx Dementia: No Miscellaneous Hx Cancer: No Recent Exposure to Contagious Disease: No Hx of C-Diff: No Any Loose Teeth: No (full set of dentures) Allergies No Known Allergies Allergy (Verified 07/27/24 09:03) Discharge Is Pt Admitted From a [facility], or a Long Term: No After D/C, Where Do you Plan to Go: Return Home From the PAT History Number of Risk Factors: 2 Vital Signs Vital Signs Vital Signs: 07/27/24 09:20 07/27/24 09:20 07/27/24 09:30 Temperature 97.2 F L 97.2 F L Temperature Source Temporal Pulse Rate 63 63 Respiratory Rate 16 16 Respiratory Pattern Normal Blood Pressure 160/91 H 160/91 H Blood Pressure Mean 114 Blood Pressure Source Monitor Blood Pressure Position Semi-Fowlers Blood Pressure Location Left Arm Pulse Ox 97 97 Oxygen Delivery Method Room Air Weight Weight: 197 lb 8.547 oz Body Mass Index (BMI) 27.5 Physical Exam Const alert and oriented x3 HEENT normocephalic Eyes PERRL Resp normal respiratory effort and normal air movement Cardio regular rate and regular rhythm GI soft to palpation, non-tender and non-distended Extremity normal to inspection Assessment & Plan Assessment/Plan (1) Encounter for screening for malignant neoplasm of colon: PLAN: Patient had history of polyps 5 years ago and presents for surveillance colonoscopy. I explained endoscopy in detail to the patient. I explained the risks including but not limited to stroke or heart attack with anesthesia, perforation of the GI tract, bleeding, infection. I explained that any of these could necessitate further emergency surgery. The patient understands and all questions were answered sufficiently. The patient wishes to proceed with procedure. Hossein Mixon MD Pager: [facility] [address] [place] [address], [address] [place] [address] Office: Surgery Risks - Colonoscopy Risks Include but are not Limited To: Risks include but are not limited to: Bleeding, perforation requiring further surgery, inability to complete colonoscopy requiring barium enema.
--- NOTE | 2024-07-27 10:19 | OP.COLON_ITS ---
Patient Name: Dannie Jama Procedure Date: 07/27/2024 9:58 AM Date of : 1955 Age: 68 Procedure: Colonoscopy Indications: High risk colon cancer surveillance: Personal history of colonic polyps Providers: Hossein Mixon MD Medicines: Propofol per Anesthesia Patient Profile: This is a 68 year old male. Refer to note in patient chart for documentation of history and physical. Last Colonoscopy: 5 years ago. Complications: No immediate complications. Estimated blood loss: Minimal. Procedure: Pre-Anesthesia Assessment: - Prior to the procedure, a History and Physical was performed, and patient medications and allergies were reviewed. The patient's tolerance of previous anesthesia was also reviewed. The risks and benefits of the procedure and the sedation options and risks were discussed with the patient. All questions were answered, and informed consent was obtained. Prior Anticoagulants: The patient has taken no anticoagulant or antiplatelet agents. After reviewing the risks and benefits, the patient was deemed in satisfactory condition to undergo the procedure. After I obtained informed consent, the scope was passed under direct vision. Throughout the procedure, the patient's blood pressure, pulse, and oxygen saturations were monitored continuously. The pediatric colonoscope was introduced through the anus and advanced to the cecum, identified by appendiceal orifice and ileocecal valve. The colonoscopy was performed without difficulty. The patient tolerated the procedure well. The quality of the bowel preparation was good. The ileocecal valve, appendiceal orifice, and rectum were photographed. Scope In: 10:06:30 AM Scope Withdrawal Time 0 hours 6 minutes 47 seconds Scope Out: 10:16:34 AM Total Procedure Duration Time 0 hours 10 minutes 4 seconds Findings: Many small-mouthed diverticula were found in the entire colon. A polyp was found in the rectum. The polyp was removed with a hot snare. Resection and retrieval were complete. The exam was otherwise without abnormality on direct and retroflexion views. Impression: - Diverticulosis in the entire examined colon. - One polyp in the rectum, removed with a hot snare. Resected and retrieved. - The examination was otherwise normal on direct and retroflexion views. Recommendation: - Discharge patient to home. - Resume previous diet. - Continue present medications. - Await pathology results. - Repeat colonoscopy in 5 years for surveillance. Procedure Code(s): --- Professional --- 93989, Colonoscopy, flexible; with removal of tumor(s), polyp(s), or other lesion(s) by snare technique Diagnosis Code(s): --- Professional --- Z86.010, Personal history of colonic polyps D12.8, Benign neoplasm of rectum K57.30, Diverticulosis of large intestine without perforation or abscess without bleeding CPT copyright 2021 [employer]. All rights reserved. The codes documented in this report are preliminary and upon installer inspector final review may be revised to meet current compliance requirements. Hossein Mixon MD 07/27/2024 10:18:59 AM This report has been signed electronically. Number of Addenda: 0 Note Initiated On: 07/27/2024 9:58 AM
--- NOTE | 2024-07-27 10:19 | OP.CCLET_ITS ---
07/27/2024 Anastacio De La Vega [address] [place] [address] Re : Colonoscopy procedure for Dannie Jama Dear Dr. De La Vega This procedure was performed on Saturday, July 27, 2024. My impressions and recommendations are as follows: Impressions : - Diverticulosis in the entire examined colon. - One polyp in the rectum, removed with a hot snare. Resected and retrieved. - The examination was otherwise normal on direct and retroflexion views. Recommendations : - Discharge patient to home. - Resume previous diet. - Continue present medications. - Await pathology results. - Repeat colonoscopy in 5 years for surveillance. My findings are described in the full procedure note, which is enclosed. If I can be of further assistance, please feel free to contact me at Doctor phone number(s): , Work: . Sincerely, Hossein Mixon MD 07/27/2024 10:18:59 AM This report has been signed electronically.
--- NOTE | 2024-07-27 10:24 | PCM.POST.ANE ---
Anesthesia: Postop Eval I Current Vital Signs Temperature: 97.4 F Pulse Rate: 68 Blood Pressure: 111/63 Respiratory Rate: 16 Pulse Ox: 97 Oxygen Delivery Method: Room Air Assessment Airway patent: Yes Spontaneous unlabored respirations: Yes Mental status: Asleep nausea: No Vomiting: No Anesthesia Complication: No Fluid Hydration Crystalloid volume administer (ml): 600 Total IV fluid infused: 600 Progress Note Anesthesia document: Postop Eval 1 completed: Yes
--- NOTE | 2024-07-27 10:34 | PCM.POSTANE2 ---
Anesthesia Postop Eval I Sum Postop Eval Completion status Anesthesia document: Postop Eval 1 completed: Yes Anesthesia Postop Eval I Summary Anesthesia Postop Eval I Summary: Anesthesia Postop Eval I: Assessment Summary Airway patent Yes 07/27/24 10:25 [email or web address] Spontaneous unlabored Yes 07/27/24 10:25 [email or web address] respirations Mental status Asleep 07/27/24 10:25 [email or web address] nausea No 07/27/24 10:25 [email or web address] Vomiting No 07/27/24 10:25 [email or web address] Anesthesia Postop Eval I: Fluid Summary Crystalloid volume administer 600 07/27/24 10:25 [email or web address] (ml) Colloids volume administered ( ml) Blood Product volume administered (ml) Total IV fluid infused 600 07/27/24 10:25 [email or web address] Anesthesia Postop Eval I: Summary Notes Anesthesia Complication No 07/27/24 10:25 [email or web address] Anesthesia Complication Comment: Post-operative progress note Anesthesia: Postop Eval II Evaluation Mental status: Awake Pain Level: 0 nausea: No Vomiting: No
== END 2024-07-27 11:25 | disposition home or self-care (01) ==
LOC: EN 08:35 → AC 08:36
PROVIDERS: PCP Family Medicine; Referring Provider Family Medicine; Visit Provider Surgery
PROC: 0DJD8ZZ Inspection of Lower Intestinal Tract, Via Natural or Artificial Opening Endoscopic (ICD-10-PCS; CPT 45378; principal; 2024-07-27 09:40)
DX: Z12.11 Encounter for screening for malignant neoplasm of colon (principal); D12.8 Benign neoplasm of rectum; G57.30 Lesion of lateral popliteal nerve, unspecified lower limb; E78.5 Hyperlipidemia, unspecified; Z87.19 Personal history of other diseases of the digestive system; Z86.0100 Personal history of colon polyps, unspecified; Z79.899 Other long term (current) drug therapy; Z87.891 Personal history of nicotine dependence
CPT/HCPCS: 45385; 88305; J7120; A4216; J2405

== ENCOUNTER → 2024-12-08 | Outpatient (CLI) | payer MEDICARE, SELFPAY ==
--- NOTE | 2024-12-08 12:14 | RAD_ITS ---
PROCEDURE: SHOULDER MIN 2 VIEWS 12/08/2024 REASON FOR EXAM: R SHOULDER TECHNIQUE: Four views of the right shoulder COMPARISON: None available FINDINGS: Bones: No acute osseous abnormality. Joints: Joint spaces are preserved. Soft tissues: No overlying soft tissue swelling. Other: RAD/Shoulder min 2 Views IMPRESSION: No acute osseous abnormality. Reading Location: [facility]
--- NOTE | 2024-12-08 12:14 | RAD_ITS ---
EXAM: Two views of the right wrist CLINICAL HISTORY: Pain COMPARISON: None available TECHNIQUE: Two views of the right wrist FINDINGS: No acute displaced fracture or dislocation. Joint spaces are preserved. No overlying soft tissue swelling. RAD/Wrist min 3 Views IMPRESSION: No acute displaced fracture or dislocation. Reading Location: [id number]
== END | disposition home or self-care (01) ==
LOC: RAD 12:10
PROVIDERS: PCP Family Medicine; Referring Provider Family Medicine; Visit Provider Family Medicine
DX: M25.511 Pain in right shoulder (principal); M25.531 Pain in right wrist
CPT/HCPCS: 73030; 73110

== ENCOUNTER → 2025-01-06 | Outpatient (CLI) | payer MEDICARE, SELFPAY ==
--- NOTE | 2025-01-06 15:40 | MRI_ITS ---
PROCEDURE: UPPER EXT JOINT ONLY(ROUTINE) 01/06/2025 REASON FOR EXAM: RT SHOULDER ROTATOR CUFF TEAR TECHNIQUE: MRI of the right upper Extremity. Multiplanar and multisequence images were obtained without IV contrast administration. COMPARISON: COMPARISON : December 08, 2024 FINDINGS: Full-thickness full width tear of the supraspinatus tendon with retraction to the level of the superomedial humeral head measuring 4.2 cm from its distal insertion. Moderate subscapularis tendinopathy with large split tear near its mid insertion measuring up to 6 mm in width. Severe intracapsular biceps tendinopathy/tearing with medial subluxation of the biceps tendon into the subscapularis tendon tear. Biceps tenosynovitis and small tenosynovial body along the biceps tendon sheath. Moderate infraspinatus tendinopathy. Mild/moderate supraspinatus muscle atrophy. Mild subscapularis and teres minor muscle atrophy. Mild superior subluxation of the humeral head. No displaced labral tear or paralabral cysts. Oblique fissure along the inferior glenoid measuring 5 mm. Full-thickness chondral defect along the superior humeral head measuring 10 x 10 mm. Small glenohumeral joint effusion. Moderate/severe acromioclavicular joint osteoarthritis including capsular hypertrophy, marginal osteophytes, articular surface irregularity, joint effusion and subcortical cysts/marrow edema. Negative for acute fracture or suspicious marrow replacement. Scattered enthesopathic cysts along the greater humeral tuberosity. Moderate fluid in the subacromial/subdeltoid bursa. MRI/Upper Ext Joint Only(Routine) IMPRESSION: 1. Full-thickness full width retracted tear of the supraspinatus tendon. 2. Moderate subscapularis tendinopathy with large split tear. Medial subluxati on of the long head biceps tendon into the subscapularis split tear. Severe intracapsular biceps tendinopathy/tearing. 3. Moderate infraspinatus tendinopathy. 4. Mild glenohumeral and moderate/severe acromioclavicular joint osteoarthritis . 5. Fluid in the subacromial/subdeltoid bursa. Reading Location: [facility]
== END | disposition home or self-care (01) ==
PROVIDERS: PCP Family Medicine; Referring Provider Family Medicine; Visit Provider Family Medicine
DX: M75.101 Unspecified rotator cuff tear or rupture of right shoulder, not specified as traumatic (principal)
CPT/HCPCS: 73221

== ENCOUNTER → 2025-07-14 | Outpatient (CLI) | payer MEDICARE, SELFPAY ==
--- NOTE | 2025-07-14 09:07 | RAD_ITS ---
PROCEDURE: L/S SPINE W BEND MIN 6 VW 07/14/2025 REASON FOR EXAM: L LEG PAIN TECHNIQUE: Procedure Code: [id number] Modality: DX Procedure: L/S SPINE W BEND MIN 6 VW COMPARISON: None FINDINGS: 6 views of the lumbar sacral spine were obtained and demonstrate the sacrum to be intact without evidence of fracture. SI joints are well preserved. There are 5 lumbar-type vertebral bodies below last set of paired ribs. There is a levoscoliosis of the lumbar spine. The vertebral body heights are within normal limits. There is no spondylolysis. There is 3 mm of retrolisthesis of L3 in relationship to L4 and 3 mm of retrolisthesis of L4 in relationship to L5. The remaining vertebral bodies demonstrate normal alignment. [id number] spondylosis of the lumbar spine is noted. Degenerative disc disease is seen involving the lumbar disc spaces. There is some bony encroachment of the neural foramina at all levels. Facet hypertrophy is noted. Severe arteriosclerotic vascular disease of the abdominal aorta is noted. RAD/L/S Spine w Bend Min 6 Vw IMPRESSION: Grade 1 retrolisthesis of a couple of the vertebral bodies as described above. [id number] spondylosis of the lumbar spine Degenerative disc disease involving the lumbar disc. Reading Location: [id number]
== END | disposition home or self-care (01) ==
LOC: MTRAD 09:05
PROVIDERS: PCP Family Medicine; Referring Provider Family Medicine; Visit Provider Family Medicine
DX: M51.361 Other intervertebral disc degeneration, lumbar region with lower extremity pain only (principal)
CPT/HCPCS: 72114

== ENCOUNTER → 2025-07-14 | Outpatient (CLI) | payer MEDICARE, SELFPAY ==
[2025-07-14 11:07] LABS: AST(SGOT) 25 U/L (<=37); Alanine Aminotransfer ALT/SGPT 29 U/L (<=46); Albumin, Serum 4.3 g/dL (3.4-4.8); Alkaline Phosphatase 60 U/L (40-129); Anion Gap 9 (5-15); BUN 25 mg/dL (4-19); BUN/Creat Ratio 25.0 RATIO (10-20); Calcium,Total 9.3 mg/dL (7.6-11.0); Carbon Dioxide 25.3 mmol/L (21.0-32.0); Chloride 105 mmol/L (98-108); Globulin 2.6 g/dL (2.2-4.2); Glucose 95 mg/dL (70-99); PSA,Total - Annual Screen 3.31 ng/mL (0.02-4.00); Potassium 4.2 mmol/L (3.3-5.1)
== END | disposition home or self-care (01) ==
LOC: MFPLAB 08:53
PROVIDERS: PCP Family Medicine; Visit Provider Family Medicine
DX: E78.5 Hyperlipidemia, unspecified (principal); R97.20 Elevated prostate specific antigen [PSA]
CPT/HCPCS: 36415; 80053; 84153; G0103